=== PATIENT | female | born 1960 | race Caucasian/White ===

== ENCOUNTER 2024-11-25 16:48 | Emergency (ER) | payer MEDICARE, MEDICAID ==
[~2024-11-25] VITALS: Ht 154.9 cm; Wt 86.8 kg
[2024-11-25 16:58] VITALS: TEMP 100.1
--- NOTE | 2024-11-25 17:24 | Physician Documentation ---
History of Present Illness ~ Chief Complaint: Sore Throat Stated Complaint: HEADACHE AND TROUBLE SWOLLOWING Time Seen by MD: 17:23 HPI 64 yof h/o alpha antytripsin disease, restrictive lung disease, pituitary mass p/w sore throat. Ongoing several days. Hurts to swallow. Also has chronic cough, no worse than usual. Medication Reconciliation Allergies: Coded Allergies: iodine (Verified Allergy, Unknown, HIVES SWELLING, 11/25/24) Uncoded Allergies: LIDOCAINS (Allergy, Unknown, NOSE BLEED, 11/25/24) Review of Systems Constitutional: Reports: fever Respiratory: Reports: cough (chronic) Cardiovascular: Denies: chest pain Gastrointestinal: Denies: abdominal pain, nausea, vomiting Physical Exam Vital Signs: RN Vital Signs have been reviewed: Yes, Temperature: 100.1, Source: Oral, Heart Rate: 134, Respiratory Rate: 24, BP: 206/136, Pulse Oximetry: 98, Weight: 86.820 Oxygen Flow Rate: 0 Physical Exam ill appearing HEENT left anterior lymphadenopathy. 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 no trismus. intact neck rom, supple no meningeal signs. lungs ctab cardiac no murmur abdomen soft non skin no rash. awake alert oriented Progress Results/Orders Reviewed/noted all lab results: Yes Results/Orders Orders - MIKIE ALMENDAREZ MD Covid19 Binax Poc Result Entry (11/25/24 17:34) ESR (11/25/24 17:34) Culture Blood (11/25/24 17:34) Ringers Solution, Lacted (Lactated Ringe (11/25/24 17:35) Cult Throat + R/O Beta Strep (11/25/24 18:14) Urinalysis (11/25/24 18:18) Chest,Single View (11/25/24 18:19) Completed Orders - MIKIE ALMENDAREZ MD Cbc/Diff (11/25/24 17:34) CMP (11/25/24 17:34) Strep A Rapid (11/25/24 17:34) C-Reactive Protein (11/25/24 17:34) Lacticsepsis (11/25/24 17:34) Ketorolac Trometh 15mg/Ml Vial (Toradol (11/25/24 17:40) Medications Received in ER Medications (Trade) Dose Ordered Sig/Jason Route PRN Reason Start Time Stop Time Status Last Admin Dose Admin Lactated Ringer's 1,000 ml @ 1,000 mls/hr ONCE ONCE IV 11/25/24 17:35 11/25/24 18:34 11/25/24 17:47 1,000 MLS/HR Vital Signs 11/25/24 16:58 Temp 100.1 Pulse 134 Resp 24 B/P (MAP) 206/136 Pulse Ox 98 O2 Flow Rate 0 Laboratory Tests Test 11/25/24 17:23 11/25/24 17:48 White Blood Count 13.7 H Red Blood Count 5.06 Hemoglobin 14.6 Hematocrit 42.7 Mean Corpuscular Volume 84.5 Mean Corpuscular Hemoglobin 28.9 Mean Corpuscular Hemoglobin Concent 34.2 Red Cell Distribution Width 14.8 H Platelet Count 237 Mean Platelet Volume 7.8 Neutrophils (%) (Auto) 76.5 H Lymphocytes (%) (Auto) 18.2 L Monocytes (%) (Auto) 4.4 Eosinophils (%) (Auto) 0.4 Basophils (%) (Auto) 0.5 Neutrophils # (Auto) 10.5 H Lymphocytes # (Auto) 2.5 Monocytes # (Auto) 0.6 Eosinophils # (Auto) 0.1 Basophils # (Auto) 0.1 CBC Comment Sodium Level 139 Potassium Level 3.5 Chloride Level 102 Carbon Dioxide Level 27.2 Anion Gap 10 Blood Urea Nitrogen 7 Creatinine 0.74 Estimated GFR/1.73 m2 79 BUN/Creatinine Ratio 9.5 L Glucose Level 117 H Lactic Acid Level 0.9 Calcium Level 9.0 Total Bilirubin 2.6 H Aspartate Amino Transf (AST/SGOT) 12 Alanine Aminotransferase (ALT/SGPT) 13 Alkaline Phosphatase 154 H C-Reactive Protein 5.44 H Total Protein 8.2 Albumin 3.8 Globulin 4.4 H Albumin/Globulin Ratio 0.9 L Chemistry Comments SARS-CoV-2 Antigen (Rapid) Negative Group A Streptococcus Rapid Negative Medical Decision Making 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 She is ill appearing, abnormal vitals (significant tachycardia fever and severe hypertension). Exam mostly benign aside for left lymphadenopathy. Labs with leukocytosis, no lactic acidosis. strep negative. Received 1LIVF and toradol. S/o Dr. Castrejon pending covid swab, CXR, UA and for reassessment of tachycardia. Likely admit for abnormal vitals and sirs criteria and or Hypertensive emergency. Antibiotics d eferred to Dr. Castrejon pending further source identification as she is showing improvement. Referrals: NO PRIMARY CARE PROVIDER (PCP) Critical Care Note Total Time (mins): 30 Critical Care Note The very real possibility of a deterioration of this patient's condition required the highest level of my preparedness for sudden, emergent intervention. I provided critical care services, which included medication orders, frequent reevaluations of the patient's condition and response to treatment, ordering and reviewing test results, and discussing the case with various consultants. Excludes time spent performing separately billable procedures. The critical care time associated with the care of the patient was 30 minutes in the acute management of sinus tachycardia requiring iv intervention Signature Scribe Signature: stephanie Attestation: MIKIE Calles MD Nov 25, 2024 17:24
[2024-11-25] MEDS: ringers solution, lacted 1,000 ML IV ONE (17:47)
[2024-11-25] MEDS: ketorolac trometh 15mg/ml vial 15 MG/ML ML IV ONE (17:48)
[2024-11-25 17:51] LABS: MEAN PLATELET VOLUME 7.8 FL (7.4-10.4); RED CELL DISTRIBUTION WIDTH 14.8 % (11.5-14.5)
[2024-11-25 17:55] LABS: CREATININE 0.74 MG/DL (0.40-0.90); TOTAL CARBON DIOXIDE 27.2 MMOL/L (24-32); eCRCL 58 ML/MIN; eGFR 79 ML/MIN
[2024-11-25 18:14] LABS: STREP A SCREEN NEGATIVE (Neg)
[2024-11-25 19:06] LABS: LEUKOCYTE ESTERASE ,URINE MODERATE (Neg); NITRITES, URINE NEGATIVE (Neg); OCCULT BLOOD,URINE TRACE-INTACT (Neg)
[2024-11-25 19:11] LABS: UA COLLECTION TYPE CLN CATCH MIDSTREAM
[2024-11-25 19:15] LABS: SQUAMOUS EPITHELIAL CELL,UR MODERATE /LPF (FEW)
[2024-11-25] MEDS: CefTRIAXone/D5W-Rocephin 1gm 50 ML IV ONE (19:55)
--- NOTE | 2024-11-25 20:01 | RADIOLOGY REPORT ---
EXAMINATION: AP portable chest radiograph CLINICAL HISTORY: cough COMPARISON: None FINDINGS: Lead wires overlie the thorax. No dominant consolidations. Mild central interstitial prominence. Aortic calcifications. The cardio mediastinal silhouette otherwise appears within normal limits given technique. No definite pleural ef fusion or pneumothorax. IMPRESSION: Mild central interstitial prominence is relatively nonspecific but can be seen with edema, reactive a irway changes as well as atypical / viral infection. Please correlate clinically.
[2024-11-25] MEDS: morphine 4 MG/ML inj SYRINge IV ONE (20:24)
[2024-11-25] MEDS ORDERED: PENI500T2 PO (20:40)
[2024-11-25 21:08] VITALS: BP 165/95; PULSE 117; RESP 16; O2SAT 97
== END 2024-11-25 21:11 | disposition home or self-care (01) ==
LOC: ER 16:50
DX: I16.1 Hypertensive emergency (principal); R65.10 Systemic inflammatory response syndrome (SIRS) of non-infectious origin without acute organ dysfunction; I10 Essential (primary) hypertension; Z88.8 Allergy status to other drugs, medicaments and biological substances; Z20.822 Contact with and (suspected) exposure to COVID-19
CPT/HCPCS: 36415; 71045; 80053; 81001; 83605; 85025; 85651; 86140; 87040; 87081; 87811; 87880; 96361; 96365; 96375; 99284; J0696; J2270; J7120; J1885

== ENCOUNTER 2025-01-24 08:28 | Outpatient (CLI) | payer MEDICARE, MEDICAID ==
[2025-01-24] MEDS ORDERED: GADOTERATE MEGLUMINE 7.5 MMOL/15 ML VIAL IV ONE (12:05)
--- NOTE | 2025-01-24 13:14 | RADIOLOGY REPORT ---
INDICATION: ENLARGED LIVER TECHNIQUE: Multiple real-time sonographic images of the abdomen were obtained. COMPARISON: None FINDINGS: The liver is heterogeneous in echogenicity. The liver measures 15cm. No intrahepatic biliary ductal dilatation is noted. Gallbladder surgically removed. The common duct measures 0.6 cm and is unremarkable. No pericholecystic fluid is noted. The right kidney measures 10cm. No hydronephrosis. The left kidney measures 10cm. No hydronephrosis. The spleen measures 15cm, within normal limits. The echogenicity is within normal limits. The pancreas is not well visualized due to obscuration from bowel gas. The visualized portions of the IVC and aorta are grossly unremarkable. IMPRESSION: Hepatic steatosis. Splenomegaly
--- NOTE | 2025-01-25 14:17 | RADIOLOGY REPORT ---
CLINICAL INDICATION: ADENOMA COMPARISON: None TECHNIQUE: Multisequence multiplanar MRI images of the brain were obtained prior to and after the uneventful administration of 10 mL of Clariscan contrast. Smaller [id number] pre and postcontrast Images of the pituitary/sella were also obtained. FINDINGS: No acute infarct or hemorrhage. No mass or midline shift. No abnormal parenchymal or meningeal enhancement. Ventricles and sulci are within normal limits. Basal cisterns are patent. Cerebellum, brainstem, and midline structures are within normal limits. Minimal mucosal thickening of the paranasal sinuses. Orbits are grossly unremarkable. Pituitary gland measures up to 7.5 mm in craniocaudal dimension, within normal limits. There is normal posterior pituitary bright spot on the precontrast images. Infundibulum and optic chiasm are unremarkable. There is in ovoid area of hypo enhancement in the left side of the pituitary at the initial 30 sec postcontrast phase measuring up to 0.5 cm, also demonstrating superior convexity in this location, possible micro adenoma, with fairly homogeneous postcontrast enhancement of the pituitary gland on the 60 sec postcontrast phase. IMPRESSION: 1. No acute intracranial abnormality. 2. 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 3. Infundibulum and optic chiasm are within normal limits. 4. No other abnormal parenchymal or meningeal enhancement in the brain.
== END 2025-01-24 23:59 | disposition home or self-care (01) ==
LOC: RAD 08:28
PROVIDERS: ATTEND Nurse Practitioner
DX: R16.0 Hepatomegaly, not elsewhere classified (principal); D35.2 Benign neoplasm of pituitary gland
CPT/HCPCS: 70553; 76700; A9575

== ENCOUNTER 2025-01-29 09:21 | Outpatient (CLI) | payer MEDICARE, MEDICAID ==
--- NOTE | 2025-01-29 12:34 | RADIOLOGY REPORT ---
MR cervical spine HISTORY: RADICULOPATHY, CERVICAL REGION TECHNIQUE: MR was performed with a surface coil at 1.5 T magnet. Sagittal, axial and coronal T1 and T2-weighted images were obtained. FINDINGS: Cervical vertebral bodies are normal in height and signal intensity with slight straightening of the normal cervical lordotic curvature At C2-3 there is no narrowing of the central canal and neural foramina At C3-4 no narrowing of the central canal or neural foramina At C4-5 there is no narrowing of the central canal and neural foramina At C5-6 there is loss of disc height and signal intensity. There is effacement of the thecal sac by bulging disc and osteophytes and slight narrowing of the right neural foramen. No cord compression. At C6-7 loss of disc height and signal intensity. There is a 2 mm disc bulge effacing the thecal sac. Slight narrowing of the left neural foramen by osteophytes C7-T1 no narrowing of the central canal neural foramina Cord normal in size and in signal intensity IMPRESSION: 1. Degenerative changes in the lower 3 cervical disc spaces 2. At C5-6 there is effacement of the thecal sac and slight narrowing of the right neural foramen by bulging disc and osteophytes. While there is no cord compression can not exclude effacement of the exiting right-sided nerve root 3. At C6-7 2 mm disc bulge effaces the thecal sac. Slight narrowing of the left neural foramen by osteophytes.
== END 2025-01-29 23:59 | disposition home or self-care (01) ==
LOC: MRI02 09:21
PROVIDERS: ATTEND Nurse Practitioner
DX: M50.123 Cervical disc disorder at C6-C7 level with radiculopathy (principal); M47.22 Other spondylosis with radiculopathy, cervical region; M48.02 Spinal stenosis, cervical region
CPT/HCPCS: 72141